=== PATIENT | female | born 2005 | race Caucasian/White ===

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

== ENCOUNTER 2024-04-15 08:01 | Inpatient (IN) | payer MEDICAID ==
[~2024-04-15 08:01] MED LIST: Carboprost Tromethamine 250 MCG/1 ML Amp IM PRN; Lactated Ringers 1,000 ML IV SCH; Methylergonovine 0.2 MG Tab PO PRN; Oxytocin 10 Units/1 ML SDV IM PRN; Sodium Chloride 0.9% 10 ML Syringe FLUSH PRN; Tranexamic Acid 1,000 MG in Sodium Chloride 0.9% 100 ML IV PRN
[2024-04-15 08:25] LABS: BASOPHILS PERCENT AUTO 0.2 % (0.0-1.0); EOSINOPHILS PERCENT AUTO 0.4 % (1.0-3.0); HEMATOCRIT 33.9 % (37.0-47.0); HEMOGLOBIN 10.6 g/dL (12.0-16.0); LYMPHOCYTES PERCENT AUTO 18.8 % (20.5-50.1); MEAN CORPUSCULAR HEMOGLOBIN 24.3 pg (27.0-34.0); MEAN CORPUSCULAR HGB CONC 31.3 g/dL (33.0-35.0); MEAN CORPUSCULAR VOLUME 77.8 fL (80-100); MONOCYTES PERCENT AUTO 6.7 % (2-8); NEUTROPHILS PERCENT AUTO 73.9 % (42.2-75.2); PLATELET COUNT,PLT 189 10^3/uL (150-450); RED BLOOD CELL COUNT 4.36 10^6/uL (4.2-5.4); WHITE BLOOD CELL COUNT,WBC 10.4 10^3/uL (5.0-10.0)
[2024-04-15] MEDS: Lactated Ringers 1,000 ML IV SCH (10:30)
[2024-04-15] MEDS ORDERED: Ketorolac 30 MG/ML SDV ONE (10:58)
[2024-04-15] MEDS ORDERED: ceFAZolin 2 GM Vial ONE (10:58)
[2024-04-15] MEDS ORDERED: Ondansetron 4 MG/2 ML SDV ONE (10:58)
[2024-04-15] MEDS ORDERED: Dexamethasone 4 MG/ML SDV ONE (10:58)
[2024-04-15] MEDS ORDERED: Oxytocin 10 Units/1 ML SDV ONE (10:58)
[2024-04-15] MEDS ORDERED: Succinylcholine 200 MG/10 ML MDV ONE (11:00)
[2024-04-15] MEDS: Oxytocin/Normal Saline 30 UNIT/500 ML BAG IV SCH (12:46)
[2024-04-15] MEDS ORDERED: Methylergonovine 0.2 MG/1 ML Amp IM PRN (14:06)
[2024-04-15] MEDS ORDERED: Naloxone 2 MG/2 ML Syringe IVPUSH PRN (14:06)
[2024-04-15] MEDS ORDERED: Acetaminophen/oxyCODONE 325-5 MG Tab PO PRN (14:06)
[2024-04-15] MEDS ORDERED: Ondansetron 4 MG/2 ML SDV IVPUSH PRN (14:06)
[2024-04-15] MEDS ORDERED: ePHEDrine 50 MG/ML SDV IVPUSH PRN (14:06)
[2024-04-15] MEDS ORDERED: Tranexamic Acid 1,000 MG in Sodium Chloride 0.9% 100 ML IV PRN (14:06)
[2024-04-15] MEDS ORDERED: Misoprostol 400 MCG (4 X 100 MCG TAB) RECTAL PRN (14:06)
[2024-04-15] MEDS ORDERED: diphenhydrAMINE 50 MG/ML SDV IVPUSH PRN (14:06)
[2024-04-15] MEDS ORDERED: Carboprost Tromethamine 250 MCG/1 ML Amp IM PRN (14:06)
[2024-04-15] MEDS ORDERED: Lactated Ringers 1,000 ML IV SCH (14:15)
[2024-04-15] MEDS: Ibuprofen 800 MG Tab PO SCH (14:41)
[2024-04-15] MEDS: Ketorolac 30 MG/ML SDV IVPUSH SCH ×2 (14:41→17:49)
[2024-04-15] MEDS: Simethicone 80 MG Tab.Chew PO SCH (17:48)
[2024-04-15] MEDS: Sodium Chloride 0.9% 10 ML Syringe FLUSH SCH (20:36)
[2024-04-16 06:49] LABS: HEMATOCRIT 27.2 % (37.0-47.0); HEMOGLOBIN 8.3 g/dL (12.0-16.0); MEAN CORPUSCULAR HEMOGLOBIN 24.3 pg (27.0-34.0); MEAN CORPUSCULAR HGB CONC 30.5 g/dL (33.0-35.0); MEAN CORPUSCULAR VOLUME 79.8 fL (80-100); RED BLOOD CELL COUNT 3.41 10^6/uL (4.2-5.4); WHITE BLOOD CELL COUNT,WBC 12.2 10^3/uL (5.0-10.0)
[2024-04-16] MEDS: Prenatal Multivitamin with Calcium/Folic Acid/Iron Tab PO SCH (08:43)
[2024-04-16] MEDS: Ibuprofen 800 MG Tab PO SCH (13:05)
[2024-04-16] MEDS: Acetaminophen 325 MG Tab PO PRN (19:08)
[2024-04-17] MEDS: Acetaminophen/oxyCODONE 325-5 MG Tab PO PRN (02:37)
[2024-04-17] MEDS: Docusate Sodium 100 MG Cap PO PRN (08:03)
[2024-04-17 13:00] VITALS: BP 137/75; PULSE 97
== END 2024-04-17 13:00 | disposition home or self-care (01) | DRG 788 ==
LOC: DL.OB 08:01 → OBSVTOIN 12:15 → DL.OB 12:15
PROVIDERS: ADMIT Student in an Organized Health Care Education/Training Program; ATTEND Student in an Organized Health Care Education/Training Program
PROC: 10D00Z1 Extraction of Products of Conception, Low, Open Approach (ICD-10-PCS; principal; 2024-04-15 12:00)
DX: O34.211 Maternal care for low transverse scar from previous cesarean delivery (principal); Z37.0 Single live birth; Z3A.39 39 weeks gestation of pregnancy
CPT/HCPCS: 36415; 85025; 85027; 86850; 86900; 86901; A9270-GY; J0330; J1885; J2590; J7120